=== PATIENT | female | born 1995 | race Caucasian/White ===

== ENCOUNTER 2019-01-30 11:29 | Emergency (ER) | payer OTHER ==
--- NOTE | 2019-01-30 12:58 | EDPHY ---
General Time Seen by Provider: 01/30/19 12:58 Narrative: CLINICAL IMPRESSION: Left lumbar back pain with radiculopathy ASSESSMENT/PLAN: Patient is a 23-year-old female with no significant medical history who presents to the emergency department with acute on chronic left lumbar back pain exacerbated after a long night of dancing. Patient is afebrile, she is not toxic appearing and in no acute distress. Her neurological exam is grossly normal, no focal deficit. Patient has had no direct trauma, she denies saddle paresthesias, lower extremity numbness, tingling, major motor weakness, urinary retention or bowel/bladder incontinence. There were no clinical findings to suggest cauda equina, epidural compression syndrome, epidural hematoma or epidural abscess. Her history and physical examination is consistent with left lumbar back pain with radiculopathy. She will continue anti-inflammatories, steroids and muscle relaxers as needed. Local referrals provided, she will also follow-up upon return home to [place]. Conservative return precautions discussed DIFFERENTIAL DX: Back pain including but not limited to muscular pain, herniated disc, spine fracture, intra-abdominal causes and urinary tract infection. ED COURSE: 1449: On repeat examination the patient is more comfortable appearing, she states she has improvement of her discomfort. She is comfortable with outpatient follow-up, provided resources. CHIEF COMPLAINT: Left lower back pain HPI: Patient is a 23-year-old female with no significant medical history who presents to the emergency department with complaints of left lower back pain. Patient endorses several years of pain at this site, waxes and wanes depending on her activity. She does have times when she has no pain at all. Patient reports about 3 weeks ago she twisted wrong and started to experience pain radiating into her buttocks. It was improving and felt much better this past week however last night she went to a concert and was doing a lot of dancing and started to experience an increase of pain. She denies any direct impact or trauma. She has no history of IV drug use or fever. Patient denies saddle paresthesias, lower extremity numbness, tingling, major motor weakness, urinary retention or bowel/bladder incontinence. She denies any chest pain, shortness of breath, abdominal pain or urinary symptoms to include dysuria, hematuria or frequency. She is a student and currently resides mostly in [place]. She has plans to return home in 3 weeks. She has never established care in [place]. PMH: Denies Pertinent Past Surgical History: Denies Family History: Not contributory Social History: Occasional alcohol, no illicit drug use or history of IV drug use. Denies smoking. REVIEW OF SYSTEMS: All other systems negative Constitutional: No fever, no chills, appetite change. Eyes: No discharge, vision change ENT: No sore throat, congestion, ear pain. Cardiovascular: No chest pain, no palpitations. Respiratory: No cough, no shortness of breath. Gastrointestinal: No abdominal pain, no vomiting, diarrhea. Genitourinary: No hematuria, dysuria, flank pain. Musculoskeletal: Back pain, no, joint swelling, joint pain, myalgias. Skin: No rashes, color change. Neurological: No headache, dizziness, weakness. PHYSICAL EXAM: General Appearance: Well-appearing, no acute distress and not toxic-appearing. HENT: Normocephalic, atraumatic. Bilateral external ears are normal. Bilateral tympanic membranes are normal with pearly lamb reflex. Nares are clear, mucosa is pink. Oropharynx is clear, uvula is midline. There is no tonsillar enlargement or exudate. The dentition is normal. Eyes: PERRLA, EOMI. Conjunctiva pink, no pallor or injection Neck: Supple, nontender, no lymphadenopathy, no midline pain. Back: No step-off, palpable bony abnormality, edema, erythema or ecchymosis of the cervical, thoracic or lumbar spines. Patient has tenderness to palpate in the left SI joint area and glute muscle. Diminished range of motion of the lumbar spine secondary to pain. 5/5 and equal strength of the UEs and LEs bilaterally including shoulder shrug. Pulses: 2+ and equal radial, DP and PT pulses bilaterally. Sensation intact and symmetric to light touch from face, UEs and LEs bilaterally. Straight leg raise positive left. Low/medium concern for Acute Spinal Emergency (ASE) High Sensitivity Neuro Exam (HSNE) Lumbar pain L1: inner thigh sensation- no deficit L2: ADduct thigh (cross legs)- no deficit L3: Extend knee- no deficit L4: Ankle dorsiflexion- no deficit L5: Great toe extension- no deficit S1: Flex knee- no deficit S3-4: bladder/bowel function- no dysfunction HSNE- no deficit Red flags: MINOR (1 pt each) Alcohol Abuse: no = 0 DM - 0 Renal - 0 Night pain - 0 3rd visit in <= 20 - 0 MAJOR (3 pts each) IVDA - 0 Fever without focus - 0 Recent/current systemic infection - 0 Immunosuppression (physician discretion)- 0 Recent spinal fracture/spinal procedure (ESR is not a good screen for spinal epidural hematoma) - 0 New bladder/bowel incontinence or retention: 0 Total Red Flag score- 0 Total Red Flag score <= 3 AND neuro exam is at baseline ---> no MRI is recommended Respiratory: There are no retractions, lungs are clear to auscultation. Cardiac: Regular rate and rhythm, no murmurs or gallops. Gastrointestinal: Abdomen is soft, nontender, bowel sounds normal, no masses/ hernia, no rigidity, guarding or focal peritoneal findings. Neurological: Alert and oriented x 3, CN 2-12 grossly intact, normal sensation and strength Skin: Warm, dry, no rashes, no nodules on palpation. Musculoskeletal: Extremities are symmetrical, full range of motion, no tenderness, deformity, swelling, or erythema. Psychiatric: Mood and affect are normal, there is no agitation. MEDICAL DECISION MAKING: Patient was seen independently. Secondary supervising physician at time of evaluation was Dr. James, she did not evaluate this patient. Diagnosis: Left lumbar back pain. Summary: Patient is a 23-year-old female with no significant medical history presents to the emergency department with acute on chronic left lower back pain. Patient is afebrile and not toxic appearing, she is in no acute distress on arrival. HSNE intact with no significant red flags. Patient has had no direct trauma or injury, no high risk features. Patient had pain directly after an evening of dancing. She had no saddle paresthesias, lower extremity numbness, tingling, major motor weakness, urinary retention or bowel/bladder incontinence. No indication for emergent MRI. There were no clinical findings to suggest vertebral osteomyelitis, acute fracture, cauda equina syndrome, epidural abscess /hematoma, epidural compression syndrome, renal colic, AAA, dissection, pyelonephritis, meningitis, malignancy, transverse myelitis, herpes zoster, or additional emergent intraabdominal infectious/obstructive process. Patient was given prednisone, Flexeril and a lidoderm patch was placed while in the ED with improvement of her pain. She is returning home to [place] and will follow up with her PCP when she gets home. Conservative return precautions discussed. Decision to obtain medical records or history from someone other than the patient: No Review / Summarize previous medical records: Yes Discussed patient with another provider: Yes, Dr. James Patient Progress: Stable, discharged. - History Smoking Status: Never smoked - Objective Vital Signs: Initial Vital Signs Temperature (C) 37.0 C 01/30/19 11:35 Heart Rate 88 01/30/19 11:35 Respiratory Rate 18 01/30/19 11:35 Blood Pressure 121/85 H 01/30/19 11:35 O2 Sat (%) 97 01/30/19 11:35 O2 Delivery Mode Room Air Allergies/Adverse Reactions: No Known Allergies Allergy (Unverified 01/30/19 11:35) Home Medications: Medication Instructions Recorded Cyclobenzaprine [Flexeril 10 MG 5 mg PO TID PRN #10 tab 01/30/19 (*)] methylPREDNISolone [Medrol Dose 1 each PO AD #1 ea 01/30/19 Trent] Medications Given: Discontinued Medications Cyclobenzaprine HCl (Flexeril) 5 mg PO EDNOW ONE Stop: 01/30/19 13:20 Last Admin: 01/30/19 13:30 Dose: 5 mg Ibuprofen (Motrin) 400 mg PO EDNOW ONE Stop: 01/30/19 13:20 Last Admin: 01/30/19 13:30 Dose: 400 mg Miscellaneous Medication (Icy Hot Lidocaine/Menthol 4%/1% Patch) 1 patch TD EDNOW ONE Stop: 01/30/19 13:21 Last Admin: 01/30/19 13:29 Dose: 1 patch Prednisone (Prednisone) 60 mg PO EDNOW ONE Stop: 01/30/19 13:20 Last Admin: 01/30/19 13:29 Dose: 60 mg Departure - Departure Disposition: Home, Routine, Self-Care Clinical Impression: Back pain Condition: Good Instructions: Back Pain (ED) Additional Instructions: DISCHARGE INSTRUCTIONS FROM YOUR PROVIDER Thank you for visiting our emergency department today. It is very important that you establish care with a primary care provider, you have also been given a referral for a neurosurgeon. Most back pain improves quickly with rest and anti-inflammatory medicines. The majority of back pain will improve regardless of treatment within 4-6 weeks. Regardless, I recommend you follow up with primary care for recheck as soon as possible. Additional evaluation as an outpatient may be needed, and further therapeutic modalities such as chiropractic or PT may be helpful. Rest. Avoid lifting greater than 10-15 pounds. Avoid twisting or prolonged sitting. Movement and gentle walking is good for your back. Try to walk for 15-10 minutes on an even surface 3 or 4 times a day as tolerated and increase gentle exercise as your back improves. Apply ice to your low back during acute pain phase, later a heating pad set to a low setting or hot tub may be helpful to help relax muscles. You have been given a steroid Dosepak, follow instructions. Make sure to take this with food. For pain control: You may take Tylenol, I recommend 500-1000 mg every 6-8 hours as needed. Take with food and a full glass of water. Stop taking if this is upsetting you stomach. Do not exceed 4000 mg in a 24 hr period. You may also take ibuprofen, recommend 400 mg every 6 hr. Take with food and a full glass of water. Stop taking if this upsets your stomach. Do not exceed 2400 mg in a 24 hr period. Flexeril (muscle relaxant) as prescribed as needed for muscle tightness and/or spasm. Salonpas pain patch, you may purchase this [id number] at the grocery store , follow instructions on the packaging. Schedule a follow-up appointment with your primary care physician in the next 2- 3 days for re-evaluation. You may require further treatment, physical therapy and/or further future testing. Return for increased or unmanageable pain, new injury, new midline back pain, numbness, tingling, weakness of your legs, loss of bowel or bladder control, inability to urinate, burning or pain with urination, blood in the urine, fever , chills, abdominal pain, vomiting, difficulty walking, dizziness, fainting, chest pain, shortness of breath, neck pain, neck stiffness, other site of back pain, calf pain, leg redness or swelling, or for any other new, worsening or worrisome symptoms. People present with illnesses and injuries in different ways, and it is always possible that we have missed something. Again, thank you for choosing our emergency department. We hope that you feel better. Referrals: Velasquez Corado MD [Medical Doctor] - 2-3 days, call for appt. (Please establish care with a primary care provider while you are living here.) Kimo Coppola MD [Medical Doctor] - 2-3 days, call for appt. Prescriptions: Cyclobenzaprine [Flexeril 10 MG (*)] 5 mg PO TID PRN #10 tab PRN Reason: Spasms methylPREDNISolone [Medrol Dose Trent] 1 each PO AD #1 ea
[2019-01-30] MEDS ORDERED: CYCLOBENZAPRINE 10 MG TAB PO ONE (13:19)
[2019-01-30] MEDS ORDERED: IBUPROFEN 200 MG TAB PO ONE (13:19)
[2019-01-30] MEDS ORDERED: predniSONE 20 MG TAB PO ONE (13:19)
[2019-01-30] MEDS ORDERED: LIDOCAINE 4%/MENTHOL 1% PATCH TD ONE (13:20)
[2019-01-30 14:48] VITALS: BP 116/76
[2019-01-30] MEDS ORDERED: PATCH REMOVAL 1 EA PATCH TD SCH (21:00)
== END 2019-01-30 14:46 | disposition home or self-care (01) ==
DX: M54.16 Radiculopathy, lumbar region (principal); G89.29 Other chronic pain
CPT/HCPCS: J7512